=== PATIENT | male | born 2000 | race African-American/Black ===

== ENCOUNTER 2024-04-17 04:58 | Emergency (ER) | payer MEDICAID, SELFPAY ==
[2024-04-17 05:04] VITALS: BP 120/72; PULSE 90; RESP 20; TEMP 36.8; O2SAT 98; BMI 20.6
[2024-04-17 06:23] VITALS: BP 123/66; PULSE 75; RESP 16; TEMP 36.7; O2SAT 99
--- NOTE | 2024-04-17 07:03 | ED.GENADULT ---
HPI - General Adult General Chief complaint: General Medical Stated complaint: rt arm lump Time Seen by Provider: 04/17/24 07:03 Source: patient Mode of arrival: ambulatory Limitations: no limitations History of Present Illness ED Provider: Daisy Arriola PA-C HPI narrative: 23-year-old male presents to the ER for evaluation of a painless small mobile mass in his right bicep that has been present for 1 year. He states he wants to make sure it was nothing ?life-threatening? because he woke up with a sharp pain around that lasted a couple seconds and subsided. He denies any tenderness to the area, skin changes. It has been the same size for approximately 1 year. He denies any swelling or tenderness in his axillary area. No swelling in his arm. No fever or chills. Patient is also requesting STI testing. He denies any penile discharge, testicular pain, concern for STI. He states whenever he goes to the hospital or sees a doctor he ?always gets tested. ? MD complaint: Painless mass in the right upper extremity Onset (ago): year(s) (1) Location: right and upper extremity Radiation: non-radiation Pain Consistency: now resolved Relieving factors: none Exacerbating factors: none Associated symptoms: denies other symptoms Treatments prior to arrival: none Related Data Allergies Allergy/AdvReac Type Severity Reaction Status Date / Time No Known Allergies Allergy Verified 04/17/24 05:08 Review of Systems Review of Systems: Yes all other systems are reviewed and are negative PMFSH Social History Social History Smoked in Last 30 Days: No Use of substances other than those prescribed or required for medical reasons: No Advance Directives: No Advance Directives Information Provided: Yes Physical Exam ED Vital Signs: Vital Signs - 24 hr 04/17/24 05:04 04/17/24 06:23 Temperature 98.2 F 98.0 F Pulse Rate 90 75 Respiratory Rate 20 16 Blood Pressure 120/72 123/66 Pulse Oximetry 98 99 Oxygen Delivery Method Room Air Room Air BMI result Body Mass Index 20.6 Appearance: Alert. Oriented X3. No acute distress. HEENT: normal inspection CVS: Normal heart rate and rhythm. Pulses normal. Respiratory: No respiratory distress. Skin: Skin warm and dry. Normal skin color. Normal skin turgor. No rashes. Extremities: Right upper extremity with an approximately 1.5 cm round, soft and mobile mass in the right upper extremity consistent with a lipoma. No swelling of the arm. No overlying skin changes. 2+ radial pulse. Neurovascularly intact distally. Neuro: Oriented X 3. Grossly normal, nonfocal Medical Decision Making Medical Decision Making MDM Narrative: 23-year-old male presents to the ER for evaluation of a mobile, painless, soft mass in the right upper extremity that has been present for the last 1 year. It is benign and is most consistent with a lipoma or a cyst. No need for incision and drainage today. Advised to follow-up with dermatology if he would like excision or further evaluation. Patient agrees with plan and is stable for discharge home. He is deferring treatment for STI, denies any symptoms, would just like to get tested. Differential Diagnosis Differential Diagnoses: The differential diagnosis associated with the presentation includes Lipoma, cyst, abscess Prescription Management I considered prescription management with: Antibiotic Patient declining Critical Care Time Critical Care Time Critical Care Time: No Discharge Plan Discharge Clinical Impression: Lipoma Qualifiers: Lipoma location: upper extremity Laterality: right Qualified Code(s): D17.21 - Benign lipomatous neoplasm of skin and subcutaneous tissue of right arm Patient Disposition: Home, Self-Care Instructions: Lipoma (ED), Soft Tissue Mass (ED) Additional Instructions: Recommend following up with Dermatology for possible excision of the lump on your arm. Call [facility] in [place] [phone] If you develop new or worsening symptoms call [phone] or come back to the ER for further evaluation. Print Language: Japanese
[2024-04-17 07:42] VITALS: BP 123/66; PULSE 75; RESP 16; TEMP 36.7; O2SAT 99
[2024-04-17 13:16] LABS: CT PCR DETECTED (Not Detect.); NG PCR NOT DETECTED (Not Detect.)
== END 2024-04-17 07:42 | disposition home or self-care (01) ==
PROVIDERS: Emergency Provider Emergency Medicine
DX: D17.21 Benign lipomatous neoplasm of skin and subcutaneous tissue of right arm (principal); A56.8 Sexually transmitted chlamydial infection of other sites
CPT/HCPCS: 87491; 87591; 99283; 99284

== ENCOUNTER 2024-04-19 09:43 | Emergency (ER) | payer MEDICAID, SELFPAY ==
[2024-04-19 09:45] VITALS: BP 128/97; PULSE 118; RESP 20; TEMP 37.2; O2SAT 100; BMI 28.3
--- NOTE | 2024-04-19 10:01 | ED_ITS ---
HPI - Male Genitourinary General Chief complaint: Urogenital-Male Stated complaint: Chlamydia Time Seen by Provider: 04/19/24 10:08 Source: patient and RN notes reviewed Mode of arrival: ambulatory Limitations: no limitations History of Present Illness ED Provider: Charity Tubbs PA-C HPI Narrative: This is a 23-year-old male who presents emergency department after testing positive for chlamydia. Patient was seen on April 17, 2024 for evaluation of a small mobile mass to his right bicep. He wanted to have routine screening performed and he was asymptomatic, he tested positive for chlamydia without treatment. He was called back to have treatment. He currently feels well, no current complaints. He has not had sexual intercourse since December. No fevers, chills, urinary frequency, urgency, penile discharge, abdominal pain, nausea, vomiting or diarrhea. No other complaints or concerns at this time Related Data Sexually active: No Previous Rx's ?Medication ?Instructions ?Recorded doxycycline hyclate 100 mg capsule 100 mg PO BID 7 days #14 caps 04/19/24 Allergies Allergy/AdvReac Type Severity Reaction Status Date / Time No Known Allergies Allergy Verified 04/19/24 09:47 Review of Systems Review of Systems: Yes all other systems are reviewed and are negative Constitutional: Constitutional: Reports as per [facility] Social History Social History Advance Directives: No Advance Directives Information Provided: No Do you have a plan to hurt others: No Plan Physical Exam Vital Signs: Vital Signs: Last Vital Signs Temp 98.9 F 04/19/24 09:45 Pulse 118 H 04/19/24 09:45 Resp 20 04/19/24 09:45 BP 128/97 H 04/19/24 09:45 Pulse Ox 100 04/19/24 09:45 O2 Del Method Room Air 04/19/24 09:45 BMI result Body Mass Index 28.3 Const: General: cooperative, comfortable and no acute distress Orientation/consciousness: patient oriented x3 Limitations: no limitations HEENT: Head: Yes normal to inspection, Yes normocephalic and Yes atraumatic Ears: hearing grossly normal bilaterally General nose exam: Normal external nose present Face and sinus: Yes normal facial exam Mouth: Normal oral and palatal mucosa present, oropharynx normal and moist mucous membranes Throat: Yes posterior oropharynx normal Eyes: General: appearance normal, both eyes and all related structures Eyelids: Yes eyelids normal Conjunctivae: conjunctivae normal Sclerae: sclerae normal Pupils: Equal, round and reactive pupils present EOM: EOMs intact bilaterally Neck: Neck: Yes normal visual inspection, Yes full ROM and Yes no lymphadenopathy Lymphatic: no lymphadenopathy noted Chest: Chest palpation & inspection: normal inspection of the chest Resp: Effort & Inspection: normal respiratory effort and able to speak in complete sentences Cardio: Rate: regular rate Rhythm: regular rhythm GI: Inspection: Yes normal to inspection Skin: General skin exam: no rashes or lesions noted Trauma: no lacerations or abrasions Wounds: no wounds Neuro: General: patient oriented x3 and moves all extremities Cranial nerves: Yes Equal, round and reactive pupils present Extrem: General: Yes normal to inspection Right upper extremity: normal to inspection Left upper extremity: normal to inspection Right lower extremity: normal to inspection Left lower extremity: normal to inspection Medical Decision Making Medical Decision Making MDM Narrative: This is a 23-year-old male who presents emergency department after being called back for positive chlamydia testing. On arrival, blood pressure elevated at 128/97, pulse 118. He is asymptomatic. Will treat with dose of ceftriaxone and doxycycline. Patient in advised to inform all sexual partners of positive chlamydia test. He understands and agrees with plan. Given strict return precautions. Patient stable for discharge. Differential Diagnosis Differential Diagnoses: The differential diagnosis associated with the presentation includes Chlamydia, gonorrhea, UTI, STI Lab Data [facility] Lab Attestation statement: I reviewed the patient's lab results. Radiology Impression Discussion of test interpretation with radiology: I have reviewed the radiologist's reading. External Record Review External record reviewed: Inpatient record, Office record, Outpatient record, Prior outpatient labs, Prior outpatient radiology, Primary care record and Outside ED record Discharge Plan Discharge Clinical Impression: Chlamydia Patient Disposition: Home, Self-Care Additional Instructions: You were seen in the emergency department and received treatment for chlamydia. Please take all prescribed medication as directed, finish the entire course. Please tell all partners that you tested positive for chlamydia as they will also need to be tested and treated. Do not have any sexual intercourse until you have completed treatment. You may follow-up with [facility] for further STI screening and testing. If any new or worsening symptoms occur including but not limited to fevers, chills, painful urination, chest pain, shortness of breath, please return for re-evaluation. Prescriptions: New doxycycline hyclate 100 mg capsule 100 mg PO BID 7 Days Qty: 14 0RF Print Language: [place]
[2024-04-19 10:46] VITALS: BP 127/70; PULSE 74; RESP 16; TEMP 37.2; O2SAT 100
[2024-04-19] MEDS: cefTRIAXone sodium 500 MG, Lidocaine HCl 1 % MPF 1 ML IM (10:48)
[2024-04-19 10:55] VITALS: BP 127/70; PULSE 74; RESP 16; TEMP 37.2; O2SAT 100
== END 2024-04-19 10:55 | disposition home or self-care (01) ==
PROVIDERS: Emergency Provider Emergency Medicine
DX: A74.89 Other chlamydial diseases (principal)
CPT/HCPCS: 96372; 99282; 99284; J0696